=== PATIENT | female | born 1995 | race Caucasian/White ===

== ENCOUNTER 2024-04-03 08:54 | Emergency (ER) | payer OTHER, SELFPAY ==
[2024-04-03 09:02] VITALS: BP 169/112
--- NOTE | 2024-04-03 09:10 | ED.GENMED ---
History of Present Illness
General
Chief Complaint: Abdominal Pain
Source: patient
Exam Limitations: none
Time Seen by Provider: 04/03/24 09:07
Nursing documentation reviewed up to this point in time: agreed with
History of Present Illness
History of Present Illness:
This is a 28 y/o female with a PMH of PCOS presenting to the emergency department today with acute on chronic abdominal pain. Patient reports that she has had pelvic cramping and pain since December on and off. Patient reports that she had a
transvaginal ultrasound with her GLOBAL CHIEF EXPERIENCE OFFICER in January which was negative for any abnormalities. Patient does have a history of PCOS but states that the ultrasound the time did not show any cysts. Patient states that she was going about her day today
getting ready to go to the gym when she had a sudden onset of this pain but states that this is the worst it has ever been. Patient reports that this feels similar to period cramps but she is not on her period. She notes cramping across her lower
abdomen worse on the left side. Patient denies any dysuria, hematuria, urinary frequency. Patient denies any nausea or vomiting. Patient denies any flank pain. Patient denies any constipation or diarrhea. Patient denies any past history of
intra-abdominal surgeries. Patient states that she is allergic to amoxicillin, states that she will get a rash.
Review of Systems
Review of Systems
All Other Systems: ROS reviewed and negative except as documented in HPI and ROS
Phy Exam
Physical Exam
Physical Exam:
General: Patient is well appearing and in no acute distress; non-toxic
Skin: Patient is mildly diaphoretic but otherwise does not have any rashes or lesions.
Head: Normocephalic, atraumatic
Eyes: Sclera non-icteric. EOMs intact.
Cardiac: Regular rate and rhythm, no murmurs
Peripheral Vascular: No lower extremity swelling or edema
Pulm: Normal respiratory effort, no wheezes, rales, or rhonchi
Abdomen: No palpable abdominal masses, no abdominal tenderness to palpation
Neuro: CN II-XII intact, no focal neurologic deficits.
Psychiatric: Appropriate mood and affect.
Course
Orders/Labs/Results
Orders:
Orders
04/03/24 09:27
IV Insert/Care/Rem.- Treatment PRN
Ketorolac [Toradol] 15 mg IV NOW STA
04/03/24 09:36
Test Result ONCE
04/03/24 09:39
US Transvaginal [US Pelvis W Transvag Combined] Urgent
Comment:
Reason For Exam: severe intermittent pelvic cramping (torsion r/o)
04/03/24 09:47
Complete Blood Count/With Diff Urgent
Comprehensive Metabolic Panel Urgent
HCG, Serum Qualitative Screen Urgent
Lipase Urgent
04/03/24 10:11
Acetaminophen [Tylenol] 1,000 mg PO NOW STA
04/03/24 11:49
CT Abd/pelvis W Iv Cont Urgent
Comment:
Reason For Exam: persistent non-focal lower abdominal pain
04/03/24 14:01
Urinalysis Reflex To Culture Urgent
Date Specimen was Collected: 04/03/24
Time Specimen was Collected: 14:00
Urine Microscopic Reflex Cult Urgent
Abnormal Lab Results
04/03/24 04/03/24
09:47 14:01
Total Bilirubin 1.4 H mg/dl
(0.2-1.3)
Ur Occult Blood Reflex 1+ A
(Negative)
Urine RBC 3-6 A /HPF
(0-2)
Urine Bacteria (Reflex) Few A
(Negative)
04/03/24 09:47
04/03/24 09:47
Vital Signs
Initial and Last Documented VS:
Initial Vital Signs
Temp Pulse Resp BP Pulse Ox
98.1 F 87 20 169/112 99
04/03/24 09:02 04/03/24 09:02 04/03/24 09:02 04/03/24 09:02 04/03/24 09:02
Last Documented Vital Signs
Temp Pulse Resp BP Pulse Ox
98.1 F 82 18 128/88 99
04/03/24 09:02 04/03/24 15:12 04/03/24 15:12 04/03/24 15:12 04/03/24 15:12
MDM/Problems Addressed
Differential Diagnosis Includes:
Differentials include ovarian torsion, ruptured ovarian cyst, IBS, endometriosis, diverticulitis
MDM/Problems Addressed:
Pelvic pain:
This is a 28 y/o female with a PMH of PCOS presenting to the emergency department today with acute on chronic abdominal pain. Patient reports that she has had pelvic cramping and pain since December on and off. Patient reports that she had a
transvaginal ultrasound with her [employer]PERI[employer] OFFICER in January which was negative for any abnormalities. Patient does have a history of PCOS but states that the ultrasound the time did not show any cysts. Patient states that this morning the pain suddenly got a
lot worse. Her pain is intermittent in severity and when the pain comes on, she becomes diaphoretic and nauseous. Here in the emergency department, she is mildly diaphoretic but well-appearing on exam. She is mildly hypertensive upon arrival.
She is given Toradol and Tylenol which controlled her pain. Her CBC and CMP are unremarkable, her lipase is within normal limits and she is not . Her urinalysis is not concerning for infection. Did obtain transvaginal ultrasound
considering patient has pelvic pain to rule out ovarian torsion and normal ovarian blood flow was confirmed. Because on reassessment patient had persistent pain and appeared very uncomfortable, did proceed with CT scan which was negative for any
acute abnormalities. Patient reports that she feels better with the management. I did discuss with patient return precautions, did give her follow-up for GI and advised to follow-up with her HOSPITAL WELLNESS COORDINATOR and PCP for further evaluation should her symptoms
not resolved. Patient expressed understanding.
Chronic conditions affecting care:
PCOS
Acute Exacerbation and/or Progression of Chronic Illness:
n/a
*Pulse Oximetry
Patient hypoxic: no
*Critical Care Note
Total Time (30-74mins, 75-104mins- exclusive of procedures): Not Applicable
Data Reviewed
Review of Other/Old Records Reveals: Records (Reviewed ER physician augmentation from 09/23/2022 patient was seen for gastroenteritis, not have any abdominal imaging at that time)
Source: patient and records
Patient Management
Escalation/DeEscalation of care consider admission/obs:
Admit not indicated, patient stable for discharge.
Update Note
Update Note:
10:15 am-- Patient notes poor improvement in pain with Toradol, will give Tylenol
11:48 am-- Patient notes improvement in her pain but she still is having episodes of intermittent persistent discomfort. Will proceed with CT scan
Patient noted significant improvement in her pain prior to discharge
ED Attending Note
-
Portions of this chart may have been created with voice recognition software.� Occasional wrong word or��sound alike� substitutions may have occurred due to the inherent limitations of voice recognition software.
Discharge Plan
Departure
Patient Disposition: Home (Routine Discharge)
Date of Disposition: 04/03/24
Time of Disposition: 14:29
Patient with high blood pressure during this ER visit?: Yes
Condition: Good
Discharge Problem:
Abdominal pain, Pelvic pain
Instructions: Pelvic Pain (DC), Abdominal Pain, BLOOD PRESSURE
Prescriptions:
No Action
ondansetron 4 mg tablet,disintegrating
4 mg PO TIDPRN PRN (Reason: nausea/vomiting) Qty: 20 0RF
Referrals:
Mary Ingram MD [Active] - Call in 1-3 days for appt
Chary Galvan DO [Family Provider] -
Activity Restrictions/Additional Instructions:
Please return emergency department should you have any acute worsening or symptoms, fevers or chills, bleeding, chest pain, shortness of breath, dizziness, or any other signs or symptoms concerning to you.
Please follow-up with GI.
Interventions
Interventions:
*Risk Screen - Suicide Last Done: 04/03/24 09:53
*General Assessment Last Done: 04/03/24 09:52
*ED COVID-19 Vaccine History Last Done: 04/03/24 09:52
*Nursing Disposition Last Done: 04/03/24 15:13
GD-Uwoysb-[id number] Assessment Last Done: 04/03/24 11:52
Discharge Date and Time
Discharge Date/Time: 04/03/24 15:14
Print Language: [id number]
[2024-04-03] MEDS: TORADOL 15 MG IV (09:45)
[2024-04-03 09:50] VITALS: BP 118/102
[2024-04-03 09:51] VITALS: BMI 26.8
[2024-04-03 10:00] VITALS: BP 131/90
[2024-04-03 10:13] LABS: % Basophils 0.5 % (0-2); % Immature Granulocytes 0.2 % (0-0.5); % Lymphocytes 23.8 % (20.5-51.1); % Monocytes 6.4 % (1.7-9.3); % Neutrophils 66.1 % (42.2-75.2); Absolute Eosinophils 0.2 10^3/uL (0-0.7); Absolute Lymphocytes 1.4 10^3/uL (1.2-3.4); Absolute Monocytes 0.4 10^3/uL (0.1-0.6); Hematocrit 39.5 % (37.0-47.0); Hemoglobin 13.3 g/dL (12.0-16.0); Mean Corp Hgb Conc. 33.7 g/dL (33.0-37.0); Mean Platelet Volume 9.4 fL (7.4-10.4); Nucleated Red Blood Cells % 0 %; Platelet Count 320 10^3/uL (130-400); Red Blood Cell Count 4.44 10^6/uL (4.20-5.40); Red Cell Dist. Width 12.8 % (11.5-14.5)
[2024-04-03 10:27] LABS: HCG, Serum Qualitative Screen Negative
[2024-04-03 10:31] LABS: ALT (SGPT) 14 U/L (0-35); AST (SGOT) 25 U/L (14-36); Albumin 4.4 g/dl (3.5-5.0); Alkaline Phosphatase 63 U/L (38-126); Blood Urea Nitrogen 16 mg/dl (7-17); Calcium 10.1 mg/dl (8.4-10.2); Carbon Dioxide 24 mmol/L (22-30); Chloride 105 mmol/L (98-107); Estimated Creatinine Clearance 96 ml/min; Glucose 88 mg/dl (70-99); Lipase 76 U/L (23-300); Potassium 4.2 mmol/L (3.5-5.1); Sodium 140 mmol/L (135-145); Total Bilirubin 1.4 mg/dl (0.2-1.3); Total Protein 7.1 g/dl (6.3-8.2); eGFR > 60.00
[2024-04-03] MEDS: TYLENOL 1000 MG PO (10:45)
[2024-04-03 14:08] LABS: Urine Albumin Negative (Neg - Trace); Urine Bilirubin Negative (Negative); Urine Character Clear (Clear); Urine Color Yellow; Urine Glucose Negative (Negative); Urine Ketone Negative (Negative); Urine Leukocyte Negative (Negative); Urine Nitrite Negative (Negative); Urine Occult Blood 1+ (Negative); Urine Specific Gravity 1.005 (<1.030); Urine Urobilinogen Negative (Neg - 1+)
[2024-04-03 14:23] LABS: Urine Bacteria Few (Negative); Urine White Cell 0-2 /HPF (0-5)
[2024-04-03 15:12] VITALS: BP 128/88
== END 2024-04-03 15:14 | disposition home or self-care (01) ==
LOC: EMR 08:54
PROVIDERS: Physician Assistant; EMERGENCY PHYSICIAN Student in an Organized Health Care Education/Training Program; FAMILY PHYSICIAN Family Medicine
DX: R10.2 Pelvic and perineal pain (principal); E28.2 Polycystic ovarian syndrome
CPT/HCPCS: 99284; 96374; 74177; 76830; 76856; 80053; 81003; 81015; 83690; 84703; 85025; Q9967